=== PATIENT | female | born 1965 | race Hispanic/Latino ===

== ENCOUNTER → 2025-02-06 | Outpatient (CLI) | payer OTHER ==
--- NOTE | 2025-02-07 11:55 | HMCIMG ---
EXAM: CT Heart Saver Calcium Scoring (Agatston Method). TECHNIQUE: Non-contrast CT of the heart performed for coronary calcium scoring. Agatston equivalent method, threshold 130 HU. RADIATION DOSE: CTDIvol (Body): 5.47 mGy DLP (Body): 83.10 mGy???cm WORKSHEET DETAILS: LM: Lesions 0, Volume 0.0 mm???, Score 0.0 LAD: Lesions 0, Volume 0.0 mm???, Score 0.0 LCX: Lesions 0, Volume 0.0 mm???, Score 0.0 RCA: Lesions 0, Volume 0.0 mm???, Score 0.0 Ca: Lesions 0, Volume 0.0 mm???, Score 0.0 Total: Lesions 0, Volume 0.0 mm???, Score 0.0 U1: Lesions 0, Volume 0.0 mm???, Score 0.0 U2: Lesions 0, Volume 0.0 mm???, Score 0.0 (Dataset does not contain a mass calibration factor; equiv. mass not calculated.) FINDINGS: Coronary Artery Calcium Score (Agatston): Total Score: 0 No identifiable coronary artery calcification. Coronary Age: < 35 years. Percentile: 0th percentile for age and sex. LUNG AND MEDIASTINUM (Visualized): Fibroatelectatic changes with fibrotic bands noted in the visualized lung angelo. BONES /T/ OTHER STRUCTURES: No significant abnormality noted. IMPRESSION: Coronary calcium score: 0 (Agatston). No evidence of coronary artery calcification. Fibroatelectatic changes with fibrotic bands in the visualized lung angelo. /[place]
== END | disposition home or self-care (01) ==
LOC: RAH 13:05
PROVIDERS: ATTEND Internal Medicine Cardiovascular Disease
DX: Z13.6 Encounter for screening for cardiovascular disorders (principal); J98.11 Atelectasis
CPT/HCPCS: 75571